=== PATIENT | male | born 1950 | race Caucasian/White ===

== ENCOUNTER → 2021-07-23 | Outpatient (CLI) | payer OTHER ==
[~2021-07-23] MED LIST: Lotrel 10-20 M1 EACH PO; Norco 7.5-3251 EACH PO; ONDA8 PO; TRAM50 PO; XARELTO10 MG PO
[2021-07-23 10:59] LABS: BASOPHILS ABSOLUTE AUTO 0.02 K/mm3 (0.00-0.23); BASOPHILS PERCENT AUTO 1 % (0-2); EOSINOPHILS ABSOLUTE AUTO 0.09 K/mm3 (0.00-0.68); EOSINOPHILS PERCENT AUTO 2 % (0-6); Hematocrit 45.7 % (37.0-53.0); Hemoglobin 15.2 g/dL (13.5-17.5); IMMATURE GRAN ABSOLUTE AUTO 0.02 K/mm3 (0.00-0.10); IMMATURE GRAN PERCENT AUTO 1 % (0-1); LYMPHOCYTES ABSOLUTE AUTO 1.05 K/mm3 (0.84-5.20); LYMPHOCYTES PERCENT AUTO 27 % (21-46); MONOCYTES ABSOLUTE AUTO 0.52 K/mm3 (0.16-1.47); MONOCYTES PERCENT AUTO 13 % (4-13); Mean Corpuscular HGB 30.6 pg (26.0-34.0); Mean Corpuscular HGB Conc 33.3 g/dL (31.5-36.5); Mean Corpuscular Volume 92 fL (80-100); NEUTROPHILS ABSOLUTE AUTO 2.21 K/mm3 (1.96-9.15); NEUTROPHILS PERCENT AUTO 57 % (41-73); Platelet Count 194 K/mm3 (150-400); RDW Coefficient Variation 13.2 % (11.7-14.2); RDW Standard Deviation 44.5 fL (35.1-46.3); Red Blood Cell Count 4.97 M/mm3 (4.30-5.90); White Blood Cell Count 3.91 K/mm3 (4.00-11.30)
[2021-07-23 13:05] LABS: Alanine Aminotransfer (ALT/SGP 41 U/L (12-78); Albumin/Globulin Ratio 1.1 (0.8-1.8); Alk Phos 84 U/L (50-136); Anion Gap 7 mmol/L (6-16); Aspartate Aminotrans (AST/SGOT 29 U/L (12-37); Bilirubin, Total 1.1 mg/dL (0.1-1.0); Blood Urea Nitrogen 20 mg/dL (8-24); Bun/Creatinine Ratio 25.8 (12.0-20.0); CHOL/HDL RATIO 2.3; CO2, Blood 26 mmol/L (21-32); Calcium, Blood 8.8 mg/dL (8.5-10.1); Chloride, Blood 106 mmol/L (98-108); Cholesterol 206 mg/dL (50-200); Creatinine, Blood 0.77 mg/dL (0.60-1.20); Globulin, Blood 3.5 g/dL (2.2-4.0); Glomerular Filtration Rate 95 (60-); Glucose, Blood 115 mg/dL (70-99); HDL Cholesterol 89 mg/dL (>39); LDL/HDL RATIO 1.1; Low Density Lipoprotein Chol 100 mg/dL (0-110); Potassium, Blood 4.4 mmol/L (3.5-5.5); Sodium, Blood 139 mmol/L (136-145); Total Protein, Blood 7.5 g/dL (6.4-8.2); Triglycerides 83 mg/dL (30-160); Very Low Density Lipoprot Chol 16 mg/dL (6-32)
== END | disposition home or self-care (01) ==
LOC: LAB 10:31 → LAB SHORT 10:31
PROVIDERS: Family Medicine
DX: Z12.12 Encounter for screening for malignant neoplasm of rectum (principal); Z12.11 Encounter for screening for malignant neoplasm of colon; E78.49 Other hyperlipidemia; I10 Essential (primary) hypertension; N40.0 Benign prostatic hyperplasia without lower urinary tract symptoms; R73.01 Impaired fasting glucose
CPT/HCPCS: 36415; 80053; 80061; 83036; 85025; G0103

== ENCOUNTER 2022-07-15 06:43 | Day surgery (SDC) | payer OTHER ==
[~2022-07-15] VITALS: Ht 175.3 cm; Wt 94.0 kg
[2022-07-15] VITALS (17 sets, daily range): BP systolic 88–167; BP diastolic 63–87
[~2022-07-15 06:43] MED LIST changes: +IBUP600 PO
--- NOTE | 2022-07-15 07:37 | NUR ---
DR. RENO AT BEDSIDE DISCUSSING ALLERGY TO OXYCODONE WITH PATIENT. PATIENT AND DR RENO AGREE TO PROCEED WITH OXYCODONE PRE-OP DOSE.
[2022-07-15] MEDS ORDERED: ASPIR 8181 M1 PO (10:51)
--- NOTE | 2022-07-15 13:02 | NUR ---
ARRIVAL TO ROOM PT ARRIVED TO ROOM AT APPROX 1225. PT A&OX4, PLEASANT, AND APPROPRIATE. BOBBY WRAP IN PLACE THAT IS CDI. PT DENIES NUMBNESS AND TINGLING AND IS FULL SENSATION AFTER SPINAL. SPINAL SITE MINIMAL SWELLING AND WNL. PT DENIES PAIN AND IS TOLERTATING PO. WILL CONTINUE TO MONITOR.
--- NOTE | 2022-07-15 13:11 | NUR ---
ARRIVAL TO ROOM PT ARRIVED TO ROOM AT APPROX 1225. PT A&OX4, PLEASANT, AND APPROPRIATE. BOBBY WRAP IN PLACE THAT IS CDI. PT DENIES NUMBNESS AND TINGLING AND IS FULL SENSATION AFTER SPINAL. SPINAL SITE MINIMAL SWELLING AND WNL. PT DENIES PAIN AND IS TOLERTATING PO. PT ARRIVED TO ROOM WITH LOW HR, ASMPTOMATIC, AND REPORTS IT AT BASELINE. WILL CONTINUE TO MONITOR.
--- NOTE | 2022-07-15 16:20 | NUR ---
EDEMA SLIGHTLY MORE EDEMA NOTED IN THE L ANKLE. PT REPORTED SWELLING AT BASELINE. ELEVATED LLE ON PILLOW. REPORTED TO JAVON BACA. WILL CONTINUE TO MONITOR.
--- NOTE | 2022-07-15 17:26 | NUR ---
SHIFT SUMMARY PT ARRIVED TO THE FLOOR AT APPROX 1225 FROM A L TKA. PT A&OX4, PLEASANT, AND APPROPRIATE. PT VSS, TOLERATING PO, VOIDING, AND UP IN THE CHAIR. PAIN MANAGED WITH TYLENOL AND TORADOL. PT HAS AN AQUACEL DRESSING THAT IS CDI. PT HAS EDEMA PRESENT IN HIS LLE AND REPORTS THAT IT IS HIS BASELINE. FOLLOWING POST OP, PT'S HR WAS LOW, ASYMPTOMATIC, AND REPORTED THAT IT IS HIS BASELINE. HR HAS NORMALIZED THROUGHOUT SHIFT. WILL CONTINUE TO MONITOR AND REPORT TO THE ONCOMING RN.
[2022-07-16 00:10] VITALS: BP 133/71
[2022-07-16 05:17] LABS: BASOPHILS ABSOLUTE AUTO 0.01 K/mm3 (0.00-0.23); BASOPHILS PERCENT AUTO 0 % (0-2); EOSINOPHILS ABSOLUTE AUTO 0.03 K/mm3 (0.00-0.68); EOSINOPHILS PERCENT AUTO 0 % (0-6); Hematocrit 38.3 % (37.0-53.0); Hemoglobin 13.3 g/dL (13.5-17.5); IMMATURE GRAN ABSOLUTE AUTO 0.02 K/mm3 (0.00-0.10); IMMATURE GRAN PERCENT AUTO 0 % (0-1); LYMPHOCYTES PERCENT AUTO 8 % (21-46); MONOCYTES ABSOLUTE AUTO 0.95 K/mm3 (0.16-1.47); MONOCYTES PERCENT AUTO 13 % (4-13); Mean Corpuscular HGB 31.5 pg (26.0-34.0); Mean Corpuscular HGB Conc 34.7 g/dL (31.5-36.5); Mean Corpuscular Volume 91 fL (80-100); Mean Platelet Volume 9.5 fL (9.1-12.4); NEUTROPHILS ABSOLUTE AUTO 5.87 K/mm3 (1.96-9.15); NEUTROPHILS PERCENT AUTO 79 % (41-73); Platelet Count 168 K/mm3 (150-400); RDW Coefficient Variation 12.7 % (11.7-14.2); RDW Standard Deviation 42.2 fL (35.1-46.3); Red Blood Cell Count 4.22 M/mm3 (4.30-5.90); White Blood Cell Count 7.48 K/mm3 (4.00-11.30)
[2022-07-16 05:30] VITALS: BP 134/70
[2022-07-16 05:42] LABS: Bun/Creatinine Ratio 22.1 (12.0-20.0); Calcium, Blood 8.9 mg/dL (8.5-10.1); Creatinine, Blood 0.68 mg/dL (0.60-1.20); Potassium, Blood 4.3 mmol/L (3.5-5.5)
--- NOTE | 2022-07-16 07:18 | NUR ---
POD 1 S/P L TKA. PT VSS T/O NIGHT. DRESSING CDI. PEDAL PULSES AND CAP REFILL WNL, PT REP SENSATION AT BASELINE. PAIN MGD PER EMAR W/REP RELIEF. PT OZZY PO, DID REP NAUSEA W/EMESIS X1. PT VOIDING URINE W/O DIFFICULTY. PT AMB IN HALLS X2 THIS SHIFT, OZZY WELL, IS UP IN CHAIR THIS AM. PLAN TO MOBILIZE W/PT AND DC HOME WHEN CLEARED.
[2022-07-16 07:58] VITALS: BP 128/75
[2022-07-16] MEDS ORDERED: TRAM50 PO (08:07)
--- NOTE | 2022-07-16 10:17 | NUR ---
DISCHARGE PT HAS CLEARED THERAPY. PAIN WELL CONTROLLED. EATING, DRINKING, & VOIDING WELL. DRSGS, SCRIPT, & POLAR PACK SENT w/ PT. ESCORTED OUT VIA W/C.
--- NOTE | 2022-07-17 12:25 | NUR ---
07/17/22 1225 Marce England VERIFICATIONS: EDIT CHART.
== END 2022-07-16 10:21 | disposition home or self-care (01) ==
LOC: ORSCMMR 06:43 → ORD 08:15 → ORSCMMR 08:15 → SURS 12:24 → ORSCMMR 07-16 10:21
PROVIDERS: Orthopaedic Surgery
PROC: 8E0Y0CZ Robotic Assisted Procedure of Lower Extremity, Open Approach (ICD-10-PCS; principal; 2022-07-15 08:15)
PROC: 0SRD0JA Replacement of Left Knee Joint with Synthetic Substitute, Uncemented, Open Approach (ICD-10-PCS; principal; 2022-07-15 08:15)
DX: M17.12 Unilateral primary osteoarthritis, left knee (principal); I10 Essential (primary) hypertension; G47.33 Obstructive sleep apnea (adult) (pediatric); Z79.899 Other long term (current) drug therapy
CPT/HCPCS: 27447; 20985; S2900; 36415; 73560-LT; 80048; 85025; 97110; 97116; 97161; 97530; A9270; C1776; J0171; J0690; J0735; J1885; J2250; J2370; J2405; J2704; J2795; J3010; J7120

== ENCOUNTER 2022-10-07 06:05 | Day surgery (SDC) | payer OTHER ==
[~2022-10-07] VITALS: Ht 177.8 cm; Wt 89.1 kg
[2022-10-07] VITALS (18 sets, daily range): BP systolic 76–126; BP diastolic 48–78
[~2022-10-07 06:05] MED LIST changes: +ASPIR 8181 M1 PO; +IBUP800 PO
--- NOTE | 2022-10-07 07:17 | NUR ---
PATIENT DECLINES OXYCODONE DUE TO ADVERSE REACTION TO IT IN PAST.
--- NOTE | 2022-10-07 07:31 | NUR ---
DR RENO NOTIFIED OF PATIENT DECLINING OXYCODONE ORDERED.
--- NOTE | 2022-10-07 09:53 | NUR ---
VERBAL ORDER FROM DR RICH NOT TO MEDICATE FOR HYPOTENSION UNLESS MAP BELOW 60
--- NOTE | 2022-10-07 11:11 | NUR ---
PT ARRIVED TO THE ROOM AT APPROXIMATELY 1025. PT IS ALERT AND ORIENTED. PT HAS DECREASED SENSTATION FROM UPPER THIGH TO FEET R/T SPINAL ANESTHESIA. SPINAL SITE WNL. PT IS TOLERATING PO. WILL CONTINUE TO MONITOR.
[2022-10-07] MEDS ORDERED: Aspir 8181 MG PO (14:37)
--- NOTE | 2022-10-07 18:16 | NUR ---
URINARY RETENTION PT HAS BEEN ABLE TO VOID MULTIPLE TIMES SINCE SURGERY BUT REPORTS FREQUENCY AND URGENCY. PT WAS BLADDER SCANNED AND FOUND TO HAVE 829ML OF URINE IN HIS BLADDER. PT HAS REFUSED A STRAIGHT CATH AT THIS TIME, EDUCATION PROVIDED ABOUT RISKS OF NOT EMPTYING BLADDER.
--- NOTE | 2022-10-07 18:18 | NUR ---
SHIFT SUMMARY PT IS POD#0 FROM R TKA WITH DR. RENO. PT HAS WORKED WITH PT, HE IS TOLERATING PO, PAIN MANAGED, AND BP HAS IMPROVED. PT IS ABLE TO VOID SMALL AMOUNTS AND IS STILL RETAINING URINE. PT HAS BEEN EDUCATED TO CALL BEFORE GETTING UP AND AMBULATING, PT HAS CONTINUED TO GET OOB AND AMBULATE WITHOUT ASSISTANCE. WILL CONTINUE TO MONITOR UNTIL REPORT TO NOC RN.
[2022-10-08 05:03] LABS: BASOPHILS ABSOLUTE AUTO 0.01 K/mm3 (0.00-0.23); BASOPHILS PERCENT AUTO 0 % (0-2); EOSINOPHILS PERCENT AUTO 0 % (0-6); Hematocrit 35.9 % (37.0-53.0); Hemoglobin 12.1 g/dL (13.5-17.5); IMMATURE GRAN ABSOLUTE AUTO 0.08 K/mm3 (0.00-0.10); IMMATURE GRAN PERCENT AUTO 1 % (0-1); LYMPHOCYTES ABSOLUTE AUTO 0.82 K/mm3 (0.84-5.20); LYMPHOCYTES PERCENT AUTO 7 % (21-46); MONOCYTES PERCENT AUTO 6 % (4-13); Mean Corpuscular HGB 29.3 pg (26.0-34.0); Mean Corpuscular HGB Conc 33.7 g/dL (31.5-36.5); Mean Corpuscular Volume 87 fL (80-100); Mean Platelet Volume 9.9 fL (9.1-12.4); NEUTROPHILS ABSOLUTE AUTO 10.26 K/mm3 (1.96-9.15); NEUTROPHILS PERCENT AUTO 86 % (41-73); Platelet Count 233 K/mm3 (150-400); RDW Coefficient Variation 13.3 % (11.7-14.2); RDW Standard Deviation 42.1 fL (35.1-46.3); Red Blood Cell Count 4.13 M/mm3 (4.30-5.90); White Blood Cell Count 11.87 K/mm3 (4.00-11.30)
[2022-10-08 05:51] LABS: Bun/Creatinine Ratio 31.8 (12.0-20.0); Calcium, Blood 8.7 mg/dL (8.5-10.1); Creatinine, Blood 0.82 mg/dL (0.60-1.20); Potassium, Blood 4.6 mmol/L (3.5-5.5)
[2022-10-08 05:58] VITALS: BP 121/84
[2022-10-08 07:28] VITALS: BP 123/58
--- NOTE | 2022-10-08 10:16 | NUR ---
DISCHARGE SUMMARY POD1 R TKA, A/OX4, VSS, TOLERATING PO, DENIES PAIN, AMBULATES WELL WITH FWW. IV WAS REMOVED FOR DISCHARGE, DRESSING TO R KNEE HAD SCANT SPOTTING ON IT, EXTRA DRESSING PROVIDED TO TAKE HOME. DISCUSSED DISCHARGE INSTRUCTIONS INCLUDING HOME CARE, MEDICATIONS, AND FOLLOW UP APPOINTMENTS. NO QUESTIONS AT THIS TIME, PT LEFT AMBULATORY AT HIS REQUEST FOLLOWED BY THIS RN WITH A WC TO GO HOME.
== END 2022-10-08 10:15 | disposition home or self-care (01) ==
LOC: ORSCMMR 06:05 → ORD 07:30 → SURS 10:36 → ORD 11:00 → ORSCMMR 10-08 10:15
PROVIDERS: Orthopaedic Surgery
PROC: 0SRC0JA Replacement of Right Knee Joint with Synthetic Substitute, Uncemented, Open Approach (ICD-10-PCS; principal; 2022-10-07 07:30)
DX: M17.11 Unilateral primary osteoarthritis, right knee (principal); I10 Essential (primary) hypertension; G47.33 Obstructive sleep apnea (adult) (pediatric); Z79.899 Other long term (current) drug therapy
CPT/HCPCS: 36415; 73560-RT; 80048; 85025; 97110; 97116; 97161; 97530; A9270; C1776; J0171; J0690; J0735; J1100; J1885; J2250; J2371; J2405; J2704; J2795; J3010; J7120

== ENCOUNTER 2024-05-12 13:03 | Day surgery (SDC) | payer OTHER ==
[~2024-05-12] VITALS: Ht 177.8 cm; Wt 91.9 kg
[2024-05-12] VITALS (13 sets, daily range): BP systolic 97–148; BP diastolic 53–79
[~2024-05-12 13:03] MED LIST changes: +Acetaminophen 500 MG Tab PO SCH; +Aspir 8181 MG PO; +CeFAZolin Sodium 2,000 MG in NS 100 ML IV SCH; +Chlorhexidine Mouth Care 15 ML UDC MT SCH; +FentaNYL Citrate 50 MCG/ML 2 ML Injection ONE; +LOTREL 10-20 M1 EACH PO; +Lactated Ringer's 1,000 ML IV SCH; -Lotrel 10-20 M1 EACH PO; +Midazolam HCl 1MG / ML 2ML Vial ONE; +Tranexamic Acid 100 ML IV SCH; +propofoL 20 ML IV ONE
[2024-05-12] MEDS ORDERED: Bupivacaine HCl 0.25% 30 ML Injection ONE (13:13)
[2024-05-12] MEDS ORDERED: CeFAZolin Sodium 2,000 MG VIAL ONE (13:33)
[2024-05-12] MEDS ORDERED: Ondansetron HCl 2 MG / ML 2ML Vial ONE (13:53)
[2024-05-12] MEDS ORDERED: Sugammadex Sodium 200 MG/2ML SDV (100 MG/ML) ONE (13:54)
[2024-05-12] MEDS ORDERED: Dexamethasone Sod Phos 10 MG/ML 1ML VIAL ONE (13:54)
[2024-05-12] MEDS ORDERED: Rocuronium Bromide 10 MG/ML 5ML Injection IV ONE (13:54)
[2024-05-12] MEDS ORDERED: Ondansetron HCl 2 MG / ML 2ML Vial IV PRN (13:55)
[2024-05-12] MEDS ORDERED: Magnesium Hydroxide Conc 10 ML UDC PO PRN (13:55)
[2024-05-12] MEDS ORDERED: Lactated Ringer's 1,000 ML IV SCH (13:55)
--- NOTE | 2024-05-12 13:57 | NUR ---
Ambulatory in Day Surgery. History, Chart, Medications and Allergies reviewed before start of procedure. Lungs clear T/O to Auscultation. Patient confirms NPO status and agrees with scheduled surgery. PT REPORTS DRINKING BLACK COFFEE AROUND 0700. ANESTHESIA NOTIFIED, PER ANESTHESIA OKAY TO PROCEED. Pre-Op teaching done. Pt verbalizes understanding. Patient States Post-Procedure ride home has been arranged. PT BELONGINGS PLACED [facility]ER[facility]ATH [facility].
--- NOTE | 2024-05-12 13:59 | NUR ---
1340: DR JACKSON AT BEDSIDE TO PERFORM INTERSCALENE NERVE BLOCK IN PREOP. 1342: TIMEOUT COMPLETE BY RN. PT PREMEDICATED BY DR JACKSON AT BEDSIDE. SEE ANESTHESIA NOTES FOR RECORD. 1343: BLOCK TIME START. 1348: BLOCK TIME END. VSS AND MONITORED THROUGHOUT PROCEDURE. PT TOLERATED PROCEDURE WELL.
[2024-05-12] MEDS ORDERED: Metoclopramide HCl 5MG / ML 2ML Vial IV PRN (14:00)
[2024-05-12] MEDS ORDERED: FLU VACC TS2024-25(6MOS UP)/PF 45 MCG/0.5 ML SYRINGE IM SCH (14:00)
[2024-05-12] MEDS ORDERED: Prochlorperazine Edisylate 10 mg Vial IV PRN (14:00)
[2024-05-12] MEDS ORDERED: DiphenhydrAMINE HCL 25 MG Cap PO PRN (14:00)
[2024-05-12] MEDS ORDERED: Bisacodyl 10 MG Supp PR PRN (14:05)
[2024-05-12] MEDS ORDERED: Promethazine HCl 25 MG Tab PO PRN (14:05)
[2024-05-12] MEDS ORDERED: Phenylephrine HCl 100 MCG/ML-NS 10MLSYR (1MG/10ML) ONE (14:34)
[2024-05-12] MEDS ORDERED: HYDROmorphone HCl/Pf 1MG SYR ONE (14:47)
[2024-05-12] MEDS ORDERED: Acetaminophen 500 MG Tab PO SCH (16:00)
[2024-05-12] MEDS ORDERED: Ketorolac Tromethamine 15mg Vial IV SCH (18:00)
[2024-05-12] MEDS ORDERED: ASPI81CH PO (18:06)
--- NOTE | 2024-05-12 18:52 | NUR ---
SHIFT SUMMARY UNFORTUNATLY, PT HAS BEEN PUKING SINCE ARRIVING TO SURGICAL UNIT. STILL WANTS TO GO HOME. MEDICATED & SITTING ON SIDE OF BED. COOL WASH CLOTH GIVEN.
[2024-05-12] MEDS ORDERED: Docusate Sodium 100 MG Cap PO SCH (21:00)
[2024-05-12] MEDS ORDERED: CeFAZolin Sodium 2,000 MG in NS 100 ML IV SCH (22:00)
--- NOTE | 2024-05-12 22:22 | NUR ---
PT ASSESSED- DENIES PAIN, AQUACEL C/D/I, CIRCULATION INTACT DISTAL TO SURGICAL SITE, SENSATION SLOWLY RETURNING, ARM IN SLING, NO COMPLAINTS, AWAITING POST OP VOID.
[2024-05-13 00:29] VITALS: BP 122/66
[2024-05-13 04:28] VITALS: BP 112/67
--- NOTE | 2024-05-13 04:31 | NUR ---
SHIFT SUMMARY WISAM WAS ALERT AND FULLY ORIENTED ON ASSESSMENT. DENIES PAIN, SOB, CHEST PAIN/PRESSURE. AQUACEL C/D/I, SLING IN PLACE, WIGGLES FINGERS, SENSATION RETURNING, DISTAL CIRCULATION INTACT. SUCCESSFUL POST OP VOID. AMBULATES APPROPRIATELY. PT KEPT OVERNIGHT FOR N/V AT START OF SHIFT WHICH HAS SINCE RESOLVED. NO ACUTE EVENTS TONIGHT.
[2024-05-13 04:56] LABS: BASOPHILS ABSOLUTE AUTO 0.01 K/mm3 (0.00-0.23); BASOPHILS PERCENT AUTO 0 % (0-2); EOSINOPHILS PERCENT AUTO 0 % (0-6); Hematocrit 40.8 % (37.0-53.0); Hemoglobin 13.6 g/dL (13.5-17.5); IMMATURE GRAN ABSOLUTE AUTO 0.06 K/mm3 (0.00-0.10); IMMATURE GRAN PERCENT AUTO 1 % (0-1); LYMPHOCYTES ABSOLUTE AUTO 0.41 K/mm3 (0.84-5.20); LYMPHOCYTES PERCENT AUTO 4 % (21-46); MONOCYTES ABSOLUTE AUTO 0.61 K/mm3 (0.16-1.47); MONOCYTES PERCENT AUTO 6 % (4-13); Mean Corpuscular HGB 29.5 pg (26.0-34.0); Mean Corpuscular HGB Conc 33.3 g/dL (31.5-36.5); Mean Corpuscular Volume 89 fL (80-100); Mean Platelet Volume 9.1 fL (9.1-12.4); NEUTROPHILS ABSOLUTE AUTO 8.69 K/mm3 (1.96-9.15); NEUTROPHILS PERCENT AUTO 89 % (41-73); Platelet Count 222 K/mm3 (150-400); RDW Coefficient Variation 13.7 % (11.7-14.2); RDW Standard Deviation 44.5 fL (35.1-46.3); Red Blood Cell Count 4.61 M/mm3 (4.30-5.90); White Blood Cell Count 9.78 K/mm3 (4.00-11.30)
[2024-05-13 05:28] LABS: Bun/Creatinine Ratio 31.2 (12.0-20.0); Calcium, Blood 8.4 mg/dL (8.5-10.1); Creatinine, Blood 0.8 mg/dL (0.60-1.20); Potassium, Blood 4.4 mmol/L (3.5-5.5)
[2024-05-13 07:24] VITALS: BP 111/61
[2024-05-13] MEDS ORDERED: Lisinopril 20 MG Tab PO SCH (09:00)
[2024-05-13] MEDS ORDERED: Aspirin 81 MG Chew PO SCH (09:00)
[2024-05-13] MEDS ORDERED: AmLODIPine Besylate 5 MG Tab PO SCH (09:00)
--- NOTE | 2024-05-13 11:27 | NUR ---
DISCHARGE: PT DC TO HOME AT THIS TIME WITH SPOUSE. PT VERBALIZED UNDERSTANDING OF INSTRUCTIONS, FOLLOW UP, AND MEDICATIONS. DRESSING SUPPLIES GIVEN. LEFT VIA WHEELCHAIR TO CAR WITH BELONGINGS.
== END 2024-05-13 11:24 | disposition home or self-care (01) ==
LOC: ORSCMMR 13:03 → ORD 14:00 → SURS 16:52 → ORSCMMR 05-13 11:24
PROVIDERS: Orthopaedic Surgery
PROC: 0RRK00Z Replacement of Left Shoulder Joint with Reverse Ball and Socket Synthetic Substitute, Open Approach (ICD-10-PCS; principal; 2024-05-12 14:00)
DX: M19.012 Primary osteoarthritis, left shoulder (principal); I10 Essential (primary) hypertension; G47.33 Obstructive sleep apnea (adult) (pediatric); Z79.899 Other long term (current) drug therapy
CPT/HCPCS: 36415; 73030; 80048; 85025; 97110; 97162; 97165; 97535; A9270; C1713; C1776; J0690; J1100; J1171; J1885; J2250; J2371; J2405; J2704; J3010; J7120

== ENCOUNTER 2024-07-21 06:13 | Day surgery (SDC) | payer OTHER ==
[~2024-07-21] VITALS: Ht 179 cm; Wt 90.1 kg
[2024-07-21] VITALS (13 sets, daily range): BP systolic 91–128; BP diastolic 55–81
[~2024-07-21 06:13] MED LIST changes: +ASPI81CH PO; -Acetaminophen 500 MG Tab PO SCH; -CeFAZolin Sodium 2,000 MG in NS 100 ML IV SCH; -Chlorhexidine Mouth Care 15 ML UDC MT SCH; -FentaNYL Citrate 50 MCG/ML 2 ML Injection ONE; -Lactated Ringer's 1,000 ML IV SCH; -Midazolam HCl 1MG / ML 2ML Vial ONE; -Tranexamic Acid 100 ML IV SCH; -propofoL 20 ML IV ONE
[2024-07-21] MEDS ORDERED: Ropivacaine 0.5% HCl/Pf 123.125 MG,EPINEPHrine HCL 0.25 MG,Ketorolac Tromethamine 15 MG... INFIL SCH (06:45)
[2024-07-21] MEDS ORDERED: Chlorhexidine Mouth Care 15 ML UDC MT SCH (06:45)
[2024-07-21] MEDS ORDERED: Lactated Ringer's 1,000 ML IV SCH ×2 (06:45→10:35)
[2024-07-21] MEDS ORDERED: Acetaminophen 500 MG Tab PO SCH ×2 (06:45→16:00)
[2024-07-21] MEDS ORDERED: CeFAZolin Sodium 2,000 MG in NS 100 ML IV SCH ×2 (06:45→16:00)
[2024-07-21] MEDS ORDERED: Tranexamic Acid 100 ML IV SCH (06:50)
[2024-07-21] MEDS ORDERED: CeFAZolin Sodium 2,000 MG VIAL ONE (07:07)
[2024-07-21] MEDS ORDERED: Etomidate 2MG / ML 10ML Vial ONE (07:21)
[2024-07-21] MEDS ORDERED: Bupivacaine 0.5% W/EPI 1:200000 SDV 30 ML Vial ONE (07:21)
[2024-07-21] MEDS ORDERED: FentaNYL Citrate 50 MCG/ML 2 ML Injection ONE ×2 (07:23→07:45)
[2024-07-21] MEDS ORDERED: Midazolam HCl 1MG / ML 2ML Vial ONE ×2 (07:23→07:25)
--- NOTE | 2024-07-21 07:25 | NUR ---
Ambulatory in Day Surgery History, Chart, Medications and Allergies reviewed before start of procedure.Patient confirms NPO status and agrees with scheduled surgery. Patient reports completing Chlorhexadine shower X2 prior to admission to hospital.Surgical site prepped with 2% Chlorhexidine cloth wipe.DISSCUSSED WITH DR. CORIE LIZARRAGA TO HOLD OXICONTIN DUE TO PATEINT HX OF HALLUCINATIONS WITH OXYCODONE.
--- NOTE | 2024-07-21 07:32 | NUR ---
bLOCK PREFORMED AT BEDSIDE BY SHANICE VALLE. TIME OUT PRIOR TO START. MEDICATED FOR PROCEDURE. PT TOLERATED WELL
[2024-07-21] MEDS ORDERED: Midazolam HCL 1 MG/ML 5MLVIAL ONE (07:35)
[2024-07-21] MEDS ORDERED: propofoL 20 ML IV ONE (07:45)
[2024-07-21] MEDS ORDERED: Ondansetron HCl 2 MG / ML 2ML Vial ONE (08:00)
[2024-07-21] MEDS ORDERED: Rocuronium Bromide 10 MG/ML 5ML Injection IV ONE (08:00)
[2024-07-21] MEDS ORDERED: Dexamethasone Sod Phos 10 MG/ML 1ML VIAL ONE (08:00)
[2024-07-21] MEDS ORDERED: Lidocaine HCl 2% 20 ML MDV ONE (08:00)
[2024-07-21] MEDS ORDERED: Ketorolac Tromethamine 30mg Vial ONE (08:32)
[2024-07-21] MEDS ORDERED: Glycopyrrolate 0.2 MG/ML 5ML VIAL ONE (08:32)
[2024-07-21] MEDS ORDERED: Phenylephrine HCl 10mg/ml 1 ml Vial ONE (08:32)
[2024-07-21] MEDS ORDERED: Sugammadex Sodium 200 MG/2ML SDV (100 MG/ML) ONE (09:52)
[2024-07-21] MEDS ORDERED: HYDROmorphone HCl/Pf 1MG SYR IV PRN ×2 (10:20→10:30)
[2024-07-21] MEDS ORDERED: Bisacodyl 10 MG Supp PR PRN (10:20)
[2024-07-21] MEDS ORDERED: Metoclopramide HCl 5MG / ML 2ML Vial IV PRN (10:25)
[2024-07-21] MEDS ORDERED: Ondansetron HCl 2 MG / ML 2ML Vial IV PRN ×2 (10:25→10:35)
[2024-07-21] MEDS ORDERED: DiphenhydrAMINE HCL 25 MG Cap PO PRN (10:25)
[2024-07-21] MEDS ORDERED: Magnesium Hydroxide Conc 10 ML UDC PO PRN (10:30)
[2024-07-21] MEDS ORDERED: Prochlorperazine Edisylate 10 mg Vial IV PRN (10:30)
[2024-07-21] MEDS ORDERED: Promethazine HCl 25 MG Tab PO PRN (10:30)
[2024-07-21] MEDS ORDERED: OxyCODONE HCL 5 MG TAB PO PRN (10:30)
[2024-07-21] MEDS ORDERED: FentaNYL Citrate 50 MCG/ML 2 ML Injection IV PRN ×3 (10:30→10:35)
--- NOTE | 2024-07-21 11:22 | NUR ---
ADMIT PT TO ROOM @1104. VSS. SURGICAL SITE TO R ARM WITH DRESSING CDI. BLOCK EFFECTS STILL PRESENT. ARM INB SLING. TOLERATING PO WELL. AWAIITNG FIRST POST OP VOID/FLATULENCE.
[2024-07-21] MEDS ORDERED: Docusate Sodium 100 MG Cap PO SCH ×2 (11:36→21:00)
[2024-07-21] MEDS ORDERED: Polyethylene Glycol 3350 17 gm PO ONE (11:40)
[2024-07-21] MEDS ORDERED: Ketorolac Tromethamine 30mg Vial IV SCH (12:00)
[2024-07-21] MEDS ORDERED: ASPI81CH PO (16:11)
--- NOTE | 2024-07-21 16:28 | NUR ---
discharged PT CLEARED THERAPY. EAGER TO DC HOME. VSS. NO PAIN AT THIS TIME. REVIEWED DC INSTRUCTIONS W/PT; VERBALIZED UNDERSTANDING. DC'D IV, CATHETER INTACT. PT DECLINED WC, ELECTING TO LEAVE UNIT BY AMBULATION, ACCOMPANIED BY ELECTRICAL AND INSTRUMENT ENGINEER TO MEET /RIDE OUTSIDE. ELECTRICAL AND INSTRUMENT ENGINEER HAD PT'S POSSESSIONS AND POLAR PACK IN HAND.
[2024-07-21] MEDS ORDERED: Aspirin 81 MG Chew PO SCH (21:00)
== END 2024-07-21 16:31 | disposition home or self-care (01) ==
LOC: ORSCMMR 06:13 → ORD 07:30 → ORSCMMR 07:30 → SURS 11:04 → ORSCMMR 16:31
PROVIDERS: Orthopaedic Surgery
PROC: 0RRJ00Z Replacement of Right Shoulder Joint with Reverse Ball and Socket Synthetic Substitute, Open Approach (ICD-10-PCS; principal; 2024-07-21 07:30)
DX: M19.011 Primary osteoarthritis, right shoulder (principal); I10 Essential (primary) hypertension; Z96.652 Presence of left artificial knee joint
CPT/HCPCS: 73030; 97161; 97165; 97530; 97535; A9270; C1713; C1776; J0171; J0690; J0735; J1100; J1885; J2250; J2371; J2405; J2704; J2795; J3010; J7120